=== PATIENT | female | born 1940 | race Caucasian/White ===

== ENCOUNTER → 2017-09-01 | Outpatient (CLI) | payer MEDICARE, OTHER | LOC: MC.RAD 09:34 | DX: N63.14 Unspecified lump in the right breast, lower inner quadrant (principal); N64.59 Other signs and symptoms in breast; N63.20 Unspecified lump in the left breast, unspecified quadrant ==

== ENCOUNTER 2018-12-12 11:08 | Outpatient (CLI) | payer MEDICARE, OTHER ==
[~2018-12-12] VITALS: Ht 170.2 cm; Wt 59.3 kg
[2018-12-12 11:15] VITALS: BP 119/60; PULSE 67; TEMP 97.1
== END 2018-12-12 17:00 | disposition home or self-care (01) ==
LOC: EUO 11:08
DX: M81.0 Age-related osteoporosis without current pathological fracture (principal)
CPT/HCPCS: J0897

== ENCOUNTER 2019-07-06 10:52 | Outpatient (CLI) | payer MEDICARE, OTHER ==
[~2019-07-06] VITALS: Ht 170.2 cm; Wt 59.3 kg
[2019-07-06 11:06] VITALS: BP 116/66; PULSE 77; TEMP 97.8
[2019-07-06] MEDS ORDERED: LIPITOR 40MG TA40 MG PO (11:23)
[2019-07-06] MEDS ORDERED: VITAMIN D 50,1.25 MG PO (11:24)
[2019-07-06] MEDS ORDERED: PRIL40 PO (11:24)
[2019-07-06] MEDS ORDERED: XANAX 0.5MG0.5 MG PO (11:25)
[2019-07-06] MEDS ORDERED: CYMBALTA 60MG60 MG PO (11:25)
== END 2019-07-06 11:26 | disposition home or self-care (01) ==
LOC: EUO 10:52
DX: M81.0 Age-related osteoporosis without current pathological fracture (principal)
CPT/HCPCS: J0897

== ENCOUNTER 2020-01-30 14:49 | Outpatient (CLI) | payer MEDICARE, OTHER ==
[~2020-01-30] VITALS: Ht 170.2 cm; Wt 57.7 kg
[~2020-01-30 14:49] MED LIST: CYMBALTA 60MG60 MG PO; LIPITOR 40MG TA40 MG PO; PRIL40 PO; VITAMIN D32000 I1 PO; XANAX 0.5MG0.5 MG PO
[2020-01-30 15:08] VITALS: BP 103/56; PULSE 67; TEMP 98.3
== END 2020-01-30 17:43 | disposition home or self-care (01) ==
LOC: EUO 14:49
DX: M81.0 Age-related osteoporosis without current pathological fracture (principal)
CPT/HCPCS: J0897